=== PATIENT | male | born 1940 | race African-American/Black ===

== ENCOUNTER 2017-07-18 14:06 | Emergency (ER) | payer MEDICARE, MEDICAID ==
[~2017-07-18] VITALS: Ht 152.4 cm; Wt 69.9 kg
[2017-07-18] MEDS ORDERED: NORVASC5 MG ORAL (14:09)
[2017-07-18] MEDS ORDERED: MEMANTINE HCL5 MG PO (14:09)
[2017-07-18] MEDS ORDERED: CLOPIDOGREL75 MG ORAL (14:09)
[2017-07-18] MEDS ORDERED: ISOSORBIDE MONO30 M1 PO (14:11)
[2017-07-18] MEDS ORDERED: ACETAMINOPHEN325 M1 ORAL (14:11)
[2017-07-18] MEDS ORDERED: SIMVASTATIN20 MG ORAL (14:11)
[2017-07-18 16:00] VITALS: BP 157/74
[2017-07-18 16:22] LABS: ANION GAP 8 mmol/L (5-15); BLOOD UREA NITROGEN 20 mg/dL (7-18); CALCIUM 9.2 MG/DL (8.5-10.1); CARBON DIOXIDE 27 MMOL/L (21-32); CHLORIDE 98 MMOL/L (98-107); CREATININE 1.1 MG/DL (0.55-1.30); SODIUM 133 MMOL/L (136-145)
[2017-07-18 16:23] LABS: BASOPHILS % (AUTO) 1.4 % (0.0-2.0); EOSINOPHILS % (AUTO) 4.5 % (0.0-3.0); HEMATOCRIT 33.3 % (42.0-52.0); HEMOGLOBIN 11.8 G/DL (14.2-18.0); LYMPHOCYTES % (AUTO) 35.3 % (20.0-45.0); MEAN CORPUSCULAR VOLUME 98 FL (80-99); MONOCYTES % (AUTO) 11.7 % (1.0-10.0); NEUTROPHILS % (AUTO) 47.1 % (45.0-75.0); PLATELET COUNT 231 K/UL (150-450); RED BLOOD COUNT 3.41 M/UL (4.70-6.10); RED CELL DISTRIBUTION WIDTH 12.2 % (11.6-14.8); WHITE BLOOD COUNT 4.8 K/UL (4.8-10.8)
[2017-07-18 16:32] LABS: ALANINE AMINOTRANSFERASE 23 U/L (12-78); ALBUMIN 3.3 G/DL (3.4-5.0); ALBUMIN/GLOBULIN RATIO 0.7 (1.0-2.7); ALKALINE PHOSPHATASE 67 U/L (46-116); ASPARTATE AMINO TRANSFERASE 24 U/L (15-37); BILIRUBIN,TOTAL 0.4 MG/DL (0.2-1.0); CREATINE KINASE 153 U/L (26-308)
[2017-07-18 18:00] VITALS: BP 161/84
[2017-07-18 19:45] VITALS: BP 150/82
[2017-07-18 22:30] VITALS: BP 148/71
--- NOTE | 2017-07-18 23:25 | Emergency Room Report ---
History of Present Illness General Chief Complaint: Eye Problems Source: Patient, EMS Present Illness HPI Patient sent in for blurred vision. Unknown how long this has been present. He denies pain in his eyes or headache. No fever. No drainage. H/O glaucoma. No apparent meds being given for this. He usually wears glasses. He is able to see me. No fevers, chills, NVD, chest pain, dyspnea, dysuria, rashes, extremity pain. Post bilateral leg amputations. He does not know why this was done and denies diabetes. Allergies: Coded Allergies: No Known Allergies (Unverified , 07/18/17) Patient History Past Medical History: see triage record Past Surgical History: pacemaker, other - bka bilat Social History Narrative SNF Reviewed Nursing Documentation: PMH: Agreed; PSxH: Agreed Nursing Documentation-PMH Hx Cardiac Problems: Yes - HF, belopw the knee amputation,glaucoma, hyperlipidemia, polyneuropathy Hx Hypertension: Yes Hx Pacemaker: Yes Review of Systems All Other Systems: negative except mentioned in HPI Physical Exam Vital Signs Date Time Temp Pulse Resp B/P (MAP) Pulse Ox O2 Delivery O2 Flow Rate FiO2 07/18/17 14:06 97.0 72 18 97 Room Air 97.0 07/18/17 16:00 157/74 Sp02 EP Interpretation: reviewed, normal General Appearance: well appearing, no apparent distress, GCS 15 Head: normocephalic Eyes: bilateral eye normal inspection, bilateral eye PERRL, bilateral eye EOMI , bilateral eye visual acuity - unable to identify large E on eye chart ENT: moist mucus membranes Neck: supple Respiratory: lungs clear, normal breath sounds Cardiovascular #1: regular rate, rhythm Cardiovascular #2: 2+ radial (R) Gastrointestinal: normal inspection, normal bowel sounds, non tender, no mass, non-distended Musculoskeletal: back normal, normal range of motion, other - BKA bilaterally Neurologic: alert, motor strength/tone normal, oriented - X2 Psychiatric: mood/affect normal Skin: normal inspection, warm/dry Medical Decision Making Diagnostic Impression: Primary Impression: Blurry vision Additional Impression: H/O: glaucoma ER Course Patient with h/o glaucoma and blurred vision. DDX: glaucoma, hyperglycemia, CVA amongst others. Evaluation with labs. Also will check intraocular pressures. Patient denies pain or other somatic symptoms at this time. This evaluation is difficult as there is functional decline. IOP 20 bilat (Multiple calls for ophthalmology consultation.) Discussed with Dr. Tejada. Suggests CT, sed rate and C-reactive protein. CT neg. Elevated ESR and C reactive protein. Patient asymptomatic at this time. Attempt to call Dr. Tejada to discuss. Will have patient follow up as outpatient. Dr. Jaramillo aware. Patient stable for outpatient observation and treatment. Laboratory Tests Test 07/18/17 16:00 White Blood Count 4.8 K/UL (4.8-10.8) Red Blood Count 3.41 M/UL (4.70-6.10) L Hemoglobin 11.8 G/DL (14.2-18.0) L Hematocrit 33.3 % (42.0-52.0) L Mean Corpuscular Volume 98 FL (80-99) Mean Corpuscular Hemoglobin 34.5 PG (27.0-31.0) H Mean Corpuscular Hemoglobin Concent 35.4 G/DL (32.0-36.0) Red Cell Distribution Width 12.2 % (11.6-14.8) Platelet Count 231 K/UL (150-450) Mean Platelet Volume 5.0 FL (6.5-10.1) L Neutrophils (%) (Auto) 47.1 % (45.0-75.0) Lymphocytes (%) (Auto) 35.3 % (20.0-45.0) Monocytes (%) (Auto) 11.7 % (1.0-10.0) H Eosinophils (%) (Auto) 4.5 % (0.0-3.0) H Basophils (%) (Auto) 1.4 % (0.0-2.0) Erythrocyte Sedimentation Rate 63 MM/HR (0-20) H Prothrombin Time 10.4 SEC (9.30-11.50) Prothrombin Time INR 1.0 (0.9-1.1) PTT 31 SEC (23-33) Sodium Level 133 MMOL/L (136-145) L Potassium Level 4.0 MMOL/L (3.5-5.1) Chloride Level 98 MMOL/L (98-107) Carbon Dioxide Level 27 MMOL/L (21-32) Anion Gap 8 mmol/L (5-15) Blood Urea Nitrogen 20 mg/dL (7-18) H Creatinine 1.1 MG/DL (0.55-1.30) Estimate Glomerular Filtration Rate mL/min (>60) Glucose Level 100 MG/DL (74-106) Calcium Level 9.2 MG/DL (8.5-10.1) Total Bilirubin 0.4 MG/DL (0.2-1.0) Aspartate Amino Transferase (AST) 24 U/L (15-37) Alanine Aminotransferase (ALT) 23 U/L (12-78) Alkaline Phosphatase 67 U/L (46-116) Total Creatine Kinase 153 U/L (26-308) Troponin I 0.000 ng/mL (0.000-0.056) C-Reactive Protein, Quantitative 3.0 mg/dL (0.00-0.90) H Total Protein 7.8 G/DL (6.4-8.2) Albumin 3.3 G/DL (3.4-5.0) L Globulin 4.5 g/dL Albumin/Globulin Ratio 0.7 (1.0-2.7) L Rhythm Strip Diag. Results EP Interpretation: yes Rhythm: NSR, no PVC's, no ectopy CT/MRI/US Diagnostic Results CT/MRI/US Diagnostic Results : Imaging Test Ordered: head Impression small vessel disease Last Vital Signs Date Time Temp Pulse Resp B/P (MAP) Pulse Ox O2 Delivery O2 Flow Rate FiO2 07/19/17 01:55 97.8 72 17 162/87 98 Room Air 97.8 Status: unchanged Disposition: XFER SNF Condition: Stable Referrals: ISMAEL JARAMILLO (PCP) Dario Carcamo M.D. Jul 18, 2017 23:25
[2017-07-19 01:50] VITALS: BP 162/87
[2017-07-19 01:55] VITALS: BP 162/87
--- NOTE | 2017-07-19 09:03 | Diagnostic Imaging Report ---
Indication: Headache Technique: Contiguous 5 mm thick transaxial imaging of the head obtained in a Siem[employer] Sensation [address] scanner. Soft tissue and bone windows generated. Automatic Exposure Control was utilized. Total Dose length Product (DLP): 1354.[address] Dose Index Volume (CTDIvol): 70.38 mGy Comparison: none Findings: There is mild prominence of the ventricles, basal cisterns, and cerebral sulci consistent with atrophy. Mild, nonspecific, white matter hypoattenuation is noted throughout the brain consistent with chronic small vessel disease. There is no midline shift, edema, acute hemorrhage, mass effect, or abnormal extra-axial fluid collections. The calvarium has a slightly [id number] appearance. Correlate for metabolic bone disease such as renal osteodystrophy.. Impression: No acute intracranial bleed, mass effect or edema. Mild atrophy of the brain. Nonspecific white matter hypoattenuation probably due to chronic small vessel disease. Abnormal bones The CT scanner at [facility] is accredited by the [employer] and the scans are performed using dose optimization techniques as appropriate to a performed exam including Automatic Exposure control.
--- NOTE | 2017-07-19 16:55 | Cardiology Report ---
APPROVED REPORT EKG Measurement Heart [id number] CT [id number] atrial sensed ventricualr paced
== END 2017-07-19 01:55 ==
LOC: EDBD 14:06 → EMR 14:26
DX: H53.8 Other visual disturbances (principal); I10 Essential (primary) hypertension; Z95.0 Presence of cardiac pacemaker; G31.9 Degenerative disease of nervous system, unspecified
CPT/HCPCS: 36415; 70450; 80053; 82550; 82962; 84484; 85025; 85610; 85651; 85730; 86140; 93005; 99284